=== PATIENT | male | born 1975 | race Asian ===

== ENCOUNTER 2019-01-08 16:10 | Emergency (ER) | payer BC ==
[~2019-01-08] VITALS: Ht 175.3 cm; Wt 67.1 kg
[2019-01-08] MEDS ORDERED: TRIPLE ANTIBIOTIC (17:08)
[2019-01-08] MEDS ORDERED: [UNRECOGNIZED DRUG - OTHER] (17:10)
== END 2019-01-08 22:39 | disposition home or self-care (01) ==
LOC: ER 16:10
DX: B02.8 Zoster with other complications (principal)